=== PATIENT | male | born 1965 | race Caucasian/White ===

== ENCOUNTER 2021-05-25 01:03 | Emergency (ER) | payer OTHER ==
[2021-05-25 01:26] LABS: HEMOGLOBIN 12.4 gm/dl (14.0-17.5); RED BLOOD COUNT 3.89 M/UL (4.20-5.50); WHITE BLOOD COUNT 8.7 K/UL (4.5-11.0)
[2021-05-25 01:45] LABS: BUN/CREATININE RATIO 10 (0-10)
== END 2021-05-25 03:00 | disposition home or self-care (01) ==
LOC: ER1 01:03
PROVIDERS: Emergency Medicine
DX: J98.4 Other disorders of lung (principal); Z20.822 Contact with and (suspected) exposure to COVID-19
CPT/HCPCS: 0240U; 71045; 80053; 82550; 82553; 83874; 83880; 84484; 85025; 93005; 96374; 99285; J2060

== ENCOUNTER → 2022-01-18 | Outpatient (CLI) | payer OTHER | LOC: CATH 10:00 | DX: R55 Syncope and collapse (principal) ==